=== PATIENT | female | born 1965 | race American Indian/Alaskan Native ===

== ENCOUNTER 2017-03-24 16:46 | Outpatient (CLI) | payer BC ==
--- NOTE | 2017-03-25 08:31 | XRay Report ---
CHEST TWO VIEWS: 03/24/17 16:46:00 CLINICAL: Cancer screening. COMPARISON: None FINDINGS: Normal heart and pulmonary vasculature. Aortic tortuosity. The lungs are normally expanded and clear.The bones and soft tissues are unremarkable. IMPRESSION: Hypertensive changes in the aorta but otherwise normal chest.
== END 2017-03-24 16:47 | disposition home or self-care (01) ==
LOC: XRAY 16:46
PROVIDERS: ATTEND Pediatrics
DX: Z12.11 Encounter for screening for malignant neoplasm of colon (principal)
CPT/HCPCS: 71020